=== PATIENT | female | born 1995 | race Caucasian/White ===

== ENCOUNTER 2019-06-28 06:11 | Emergency (ER) | payer OTHER ==
[2019-06-28 07:32] VITALS: BP 143/80; PULSE 82; TEMP 97.8; BMI 20.7
[2019-06-28] MEDS ORDERED: TETRACAINE 0.5% HCL 0.6ML DROPPER.BOTTLE OD ONE (07:50)
[2019-06-28] MEDS ORDERED: FLUORESCEIN NA 1 EA STRIP ONE (07:53)
--- NOTE | 2019-06-28 08:15 | PDOC ---
History of Present Illness - General Chief Complaint: Eye Problem Stated Complaint: L EYE REDNESS Time Seen by Provider: 06/28/19 07:38 History Source: Patient Exam Limitations: No Limitations - History of Present Illness Initial Comments: 06/28/19 08:16 24-year-old female with history of "being cross eyed "requiring 5 eye surgeries during childhood presents complaining of pain to left eye since 11 PM last night. Patient states she was laying in bed with the lights off and felt something going to her left eye. She immediately rinsed her eye with water. Had difficulty sleeping due to eye pain. Currently on fourth day of 7-day course of amoxicillin prescribed by PMD for an ear infection. Patient stopped wearing contacts 3 months ago, wears corrective lenses. Denies fever, chills, headache, vision changes or any other complaints. She did not take anything for pain this morning. ROS: GENERAL/CONSTITUTIONAL: No fever, chills, weakness, dizziness HEAD, EYES, EARS, NOSE AND THROAT: Left eye pain, no changes in vision, No sore throat CARDIOVASCULAR: No chest pain RESPIRATORY: No shortness of breath or cough GASTROINTESTINAL: No pain, nausea, vomiting, diarrhea or constipation GENITOURINARY: No dysuria MUSCULOSKELETAL: No neck or back pain SKIN: No rash NEUROLOGIC: No headache, vertigo, loss of consciousness, or loss of sensation PE: GENERAL: well-appearing, NAD, left eye tearing HEAD: NCAT EYES: VA 20/40 OS, 20/30 OD with corrective lenses, no foreign body noted upon inverting the upper and lower left eyelids, large vertical fluorescein uptake to mid cornea noted, injected conjunctiva, pupils equal, round and reactive to light ENT: pharynx: no erythema, no exudate, uvula midline NECK: supple CHEST: nontender RESP: clear, no w/r/r CARDIO: rrr, no m/g/r ABD: +BS, soft, nontender, non distended BACK: no midline spinal ttp, no CVAT EXTREMITIES: Normal range of motion, no edema NEUROLOGICAL: Normal speech, normal gait SKIN: Warm, Dry 06/28/19 08:22 Past History - Past Medical History Allergies/Adverse Reactions: Allergies Allergy/AdvReac Type Severity Reaction Status Date / Time No Known Allergies Allergy Verified 06/28/19 07:48 Home Medications: Ambulatory Orders Erythromycin 0.5% Eye Ointment [Erythromycin 0.5% Eye Ointment -] 1 applic OS TID #1 tube 06/28/19 CVA: No COPD: No CHF: No DVT: No Dementia: No - Immunization History Immunization Up to Date: Yes - Psycho Social/Smoking Cessation Hx Smoking History: Never smoked Information on smoking cessation initiated: No Hx Alcohol Use: No Drug/Substance Use Hx: No *Physical Exam - Vital Signs Last Vital Signs Temp Pulse Resp BP Pulse Ox 97.8 F 82 17 143/80 100 06/28/19 07:10 06/28/19 07:10 06/28/19 07:10 06/28/19 07:10 06/28/19 07:10 ED Treatment Course - Medications Given in the ED: ED Medications Discontinued Medications Generic Name Dose Route Start Last Admin Trade Name Freq PRN Reason Stop Dose Admin Tetracaine HCl 1 drop 06/28/19 07:50 06/28/19 07:54 Tetravisc 0.5% Eye Drops - OD 06/28/19 07:51 1 drop ONCE ONE Administration Medical Decision Making - Medical Decision Making 06/28/19 08:21 24-year-old female complaining of acute left eye pain since feeling something entering her eye last night. Exam consistent with corneal abrasion Erythromycin ophthalmologic ointment prescribed P.o. ibuprofen 600 mg 1 dose provided Patient understands she must follow-up with an hull inspector within 1 to 2 days Return precautions discussed Discharge - Discharge Information Problems reviewed: Yes Clinical Impression/Diagnosis: Corneal abrasion Qualifiers: Encounter type: initial encounter Laterality: left Qualified Code(s): S05.02XA - Injury of conjunctiva and corneal abrasion without foreign body, left eye, initial encounter Condition: Stable Disposition: HOME - Admission No - Follow up/Referral - Patient Discharge Instructions Additional Instructions: Apply erythromycin ophthalmologic ointment to left eye 3 times a day Follow up with your eye doctor within 1 to 2 days Return to ED if worsening pain, tearing, changes in vision, eyelid swelling or any worsening complaint - Post Discharge Activity Work/Back to School Note: Back to Work
[2019-06-28] MEDS ORDERED: IBUPROFEN 600 MG TABLET (FP) PO ONE ×2 (08:16→08:32)
== END 2019-06-28 08:38 | disposition home or self-care (01) ==
LOC: JER 06:11
DX: S05.02XA Injury of conjunctiva and corneal abrasion without foreign body, left eye, initial encounter (principal); X58.XXXA Exposure to other specified factors, initial encounter; Y93.89 Activity, other specified; Y92.032 Bedroom in apartment as the place of occurrence of the external cause; Y99.8 Other external cause status
CPT/HCPCS: 99281-25